=== PATIENT | female | born 2000 | race African-American/Black ===

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

== ENCOUNTER 2022-09-30 06:33 | Inpatient (IN) ==
[2022-09-30] MEDS ORDERED: DIPRIVAN VIAL 20 ML ONE ×2 (06:39→08:40)
[2022-09-30] MEDS ORDERED: ZOFRAN INJ 4 MG VIAL ONE (06:40)
[2022-09-30] MEDS ORDERED: REGLAN INJ 10 MG VIAL ONE (06:40)
[2022-09-30] MEDS ORDERED: EPHEDRINE SULFATE INJ ONE (06:40)
[2022-09-30] MEDS ORDERED: PEPCID 20 MG VIAL ONE (06:40)
[2022-09-30] MEDS ORDERED: PITOCIN ONE (06:43)
[2022-09-30] MEDS ORDERED: MARCAINE SPINAL ONE (06:44)
[2022-09-30] MEDS ORDERED: DILAUDID INJ ONE (06:44)
[2022-09-30] MEDS ORDERED: LR 1,000 ML IV 1,000 ML IV ONE ×3 (06:45→07:55)
[2022-09-30] MEDS ORDERED: D5 1/2 NS 1,000 mL + PITOCIN 20 UNITS/L IV 20 UNITS/1,000 ML BAG IV ONE (06:45)
[2022-09-30] MEDS ORDERED: XYLOCAINE 1 % (PLAIN) ONE (06:45)
[2022-09-30] MEDS ORDERED: ANCEF VIAL 1 GRAM ONE (06:47)
[2022-09-30] MEDS ORDERED: D5 1/2 NS 1,000 ML 1,000 ML IV SCH (06:57)
[2022-09-30] MEDS ORDERED: ANCEF VIAL 1 GRAM IVP ONE (06:57)
[2022-09-30] MEDS ORDERED: VERSED ONE (08:18)
[2022-09-30] MEDS ORDERED: KETAMINE 50 MG/5 ML-NACL SYRNG ONE (08:37)
[2022-09-30] MEDS ORDERED: REGLAN INJ 10 MG VIAL IVP PRN ×2 (09:24→09:51)
[2022-09-30] MEDS ORDERED: BENADRYL INJ 50 MG VIAL IVP PRN ×2 (09:24→09:51)
[2022-09-30] MEDS ORDERED: BARHEMSYS INJ IVP PRN (09:24)
[2022-09-30] MEDS ORDERED: ZOFRAN INJ 4 MG VIAL IVP PRN ×2 (09:24→09:51)
[2022-09-30] MEDS ORDERED: MYLICON TAB 80 MG CHEW PO PRN (09:51)
[2022-09-30] MEDS ORDERED: TORADOL 30 MG VIAL IVP PRN (09:51)
[2022-09-30] MEDS ORDERED: NARCAN INJ IVP PRN (09:51)
[2022-09-30] MEDS ORDERED: ADACEL or BOOSTRIX TDaP VACCINE IM ONE ×2 (09:51→15:33)
[2022-09-30] MEDS ORDERED: PERCOCET TAB 5/325 MG PO PRN (09:51)
[2022-09-30] MEDS ORDERED: D5 1/2 NS 1,000 ML 1,000 ML with PITOCIN 20 UNITS IV SCH ×2 (10:00)
[2022-10-01 05:56] LABS: HEMATOCRIT 29.9 % (36.0-47.0)
[2022-10-01 06:07] LABS: HEMOGLOBIN 10.2 g/dL (12.0-16.0)
[2022-10-01] MEDS ORDERED: PERCOCET TAB 5/325 MG PO PRN (08:36)
[2022-10-01] MEDS: PRENATAL PLUS PO SCH (08:38)
[2022-10-01] MEDS ORDERED: COLACE CAP 100 MG PO ONE (08:40)
[2022-10-01] MEDS: COLACE CAP 100 MG PO SCH ×2 (08:40→20:19)
[2022-10-01] MEDS: MOTRIN TAB 800 MG PO PRN ×2 (12:00→20:19)
[2022-10-01] MEDS: BACTROBAN TOPICAL OINT TOP SCH ×2 (14:46→21:25)
[2022-10-02] MEDS: BACTROBAN TOPICAL OINT TOP SCH (05:15)
[2022-10-02 08:10] VITALS: BP 154/83; PULSE 101; RESP 18; TEMP 99.2; O2SAT 99
[2022-10-02] MEDS: MOTRIN TAB 800 MG PO PRN (09:11)
[2022-10-02] MEDS: COLACE CAP 100 MG PO SCH (09:11)
[2022-10-02] MEDS: PRENATAL PLUS PO SCH (09:11)
== END 2022-10-02 09:25 | disposition home or self-care (01) | DRG 784 ==
LOC: LD 06:33 → MED/SURG 09:55
PROVIDERS: ADMIT Specialist; ATTEND Specialist
DX: Z3A.38 38 weeks gestation of pregnancy; O34.211 Maternal care for low transverse scar from previous cesarean delivery; N85.8 Other specified noninflammatory disorders of uterus; O98.82 Other maternal infectious and parasitic diseases complicating childbirth; B95.1 Streptococcus, group B, as the cause of diseases classified elsewhere; Z37.0 Single live birth; Z30.2 Encounter for sterilization; Z01.812 Encounter for preprocedural laboratory examination